=== PATIENT | female | born 1950 | race Caucasian/White ===

== ENCOUNTER 2018-01-26 16:27 | Inpatient (IN) ==
[2018-01-26] MEDS ORDERED: Sod Chloride 0.9% Inj 1,000 ML IV.SIG ONE (17:20)
--- NOTE | 2018-01-26 17:52 | XR ---
EXAM DATE: 01/26/2018 5:47 PM EDT AGE/SEX: 67 years / Female INDICATIONS: Palpitations. CLINICAL DATA: This is the patient's initial encounter. Patient reports that signs and symptoms have been present for 1 day and indicates a pain score of 0/10. MEDICAL/SURGICAL HISTORY: None. None. COMPARISON: [facility], CT CHEST W/ CONTRAST, 01/25/2018. . FINDINGS: The right lung is grossly clear. There is a 2.3 cm mass in the medial left upper lung. This was noted on a recent CT scan of the thorax. The heart size is within normal limits. There are no pleural effu sions or pulmonary edema. The bony structures are intact and stable. CONCLUSION: 1. There continues to be a focal mass in the medial left upper lung measuring approximately 2.3 cm. This was recently evaluated by CT thorax. 2. Otherwise, the rest the lung babin remain grossly clear. Electronically signed by: Reymundo Noe MD 01/26/2018 5:51 PM EDT
[2018-01-26 18:23] LABS: Baso # (Auto) 0.1 th/mm3 (0.0-0.2); Baso % (Auto) 0.8 % (0.0-2.0); Eos % (Auto) 0.3 % (0.0-4.0); Hematocrit 41.6 % (35.0-46.0); Hemoglobin 13.8 gm/dL (11.6-15.3); Lymph # (Auto) 1.9 th/mm3 (1.0-4.8); Lymph % (Auto) 18.4 % (9.0-44.0); Mean Corpuscular HGB Conc 33.2 % (32.0-36.0); Mean Corpuscular Hemoglobin 30.1 pg (27.0-34.0); Mean Corpuscular Volume 90.8 fL (80.0-100.0); Mono # (Auto) 0.8 th/mm3 (0.0-0.9); Mono % (Auto) 7.4 % (0.0-8.0); Neut # (Auto) 7.6 th/mm3 (1.8-7.7); Neut % (Auto) 73.1 % (16.0-70.0); Platelet Count 299 th/mm3 (150-450); Red Blood Count 4.58 mil/mm3 (4.00-5.30); Red Cell Distribution Width 13.6 % (11.6-17.2); White Blood Count 10.4 th/mm3 (4.0-11.0)
[2018-01-26 18:43] LABS: Alanine Aminotransferase 19 U/L (10-53); Albumin 3.5 g/dL (3.4-5.0); Anion Gap 10 meq/L (5-15); Aspartate Aminotransferase 18 U/L (15-37); Blood Urea Nitrogen 23 mg/dL (7-18); Carbon Dioxide 23.7 meq/L (21.0-32.0); Chloride 109 meq/L (98-107); Glomerular Filtration Rate Greater Than 89 mL/min (>89); Glucose,Random 97 mg/dL (74-106); Potassium 3.5 meq/L (3.5-5.1); Sodium 143 meq/L (136-145)
[2018-01-26 18:46] LABS: Alkaline Phosphatase 87 U/L (45-117); Total Protein 7.4 g/dL (6.4-8.2)
[2018-01-26] MEDS ORDERED: Dexamethasone Inj 20 MG/5 ML Vial IV.PUSH ONE (18:53)
--- NOTE | 2018-01-26 18:59 | CT ---
EXAM DATE: 01/26/2018 6:39 PM EDT AGE/SEX: 67 years / Female INDICATIONS: General weakness CLINICAL DATA: This is the patient's initial encounter. Patient reports that signs and symptoms have been present for 1 day and indicates a pain score of 5/10. MEDICAL/SURGICAL HISTORY: Hypothyroidism. Gastric ulcer lung mass Appendectomy. Hysterectomy. Ch olecystectomy. Bypass gastrojejunostomy RADIATION DOSE: 56.35 CTDI (mGy) COMPARISON: [facility], CT CHEST W/ CONTRAST, 01/25/2018. . TECHNIQUE: CT of the head without contrast. Using automated exposure control and adjustment of the mA and/or kV according to patient size, radiation dose was kept as low as reasonably achievable to ob tain optimal diagnostic quality images. DICOM format image data is available electronically for revi ew and comparison. FINDINGS: Cerebrum: Abnormal. There are numerous bilateral varying-sized spontaneous hyperdensity masses measu ring up to 1 cm in size. Involvement of the upper, mid, and low convexities. There is also asymmetric hypodensity in the white matter of the right supratentorial brain suggesting diffuse edema. The vent ricles are symmetric in size and normal size. No evidence of midline shift. No evidence of transtento rial herniation. Posterior Fossa: Abnormal. There are multiple spontaneously high density lesions in the left and rig ht cerebellar hemisphere measuring up to 11 mm in size. There is also a dominant spontaneously hyperd ense mass in the lower robbie which measures 1.4 cm in size. The fourth ventricle remains in the midlin e. Extracranial: The visualized portion of the orbits is intact. Skull: The calvaria is intact. No evidence of skull fracture. CONCLUSION: 1. Abnormal noncontrast CT brain demonstrating numerous hyperdense masses involving supratentorial b rain, cerebellum, and robbie. There is evidence of edema in the right supratentorial white matter, but no significant mass effect or herniation seen. An outpatient CT scan yesterday had demonstrated a cav itary right upper lobe mass and adenopathy in the axilla and supraclavicular region. Primary differen tial consideration is metastatic disease. . Electronically signed by: Edy Alvarado MD 01/26/2018 6:57 PM EDT
--- NOTE | 2018-01-26 19:33 | ED ---
HPI General Chief complaint: Fall Stated complaint: dr sent Time Seen by Provider: 01/26/18 17:20 Source: patient and family Mode of arrival: ambulatory Limitations: no limitations History of Present Illness HPI narrative: 67-year-old female patient presents to the ER sent in by her friends and primary care doctor, apparently has recently been found to have possible metastases in the lung, and has been having problems with frequent falls, difficulty walking. She denies any chest pains currently, abdominal pains, vomiting, or other issues. Related Data Home Medications Medication Instructions Recorded Confirmed acetaminophen [Tylenol] 325 mg PO Q4-6H PRN 01/26/18 01/26/18 ascorbic acid (vitamin C) [Vitamin 500 mg PO BID 01/26/18 01/26/18 C] bethanechol chloride [Urecholine] 12.5 mg PO QID 01/26/18 01/26/18 [id number]-iuvvnljmdhukr-buuw 1 cap PO Q4H PRN 01/26/18 01/26/18 [Fioricet] calcium carbonate [Calcium 500] 1,000 mg PO DAILY 01/26/18 01/26/18 dexlansoprazole [Dexilant] 60 mg PO DAILY 01/26/18 01/26/18 estradiol 1 mg PO DAILY 01/26/18 01/26/18 ferrous sulfate 325 mg PO BID 01/26/18 01/26/18 folic acid 1 mg PO DAILY 01/26/18 01/26/18 levothyroxine [Synthroid] 200 mcg PO DAILY 01/26/18 01/26/18 loratadine-pseudoephedrine 1 tab PO DAILY PRN 01/26/18 01/26/18 [Claritin-D 24 Hour] sucralfate [Carafate] 1 g PO QID 01/26/18 01/26/18 topiramate [Topamax] 50 mg PO DAILY 01/26/18 01/26/18 Allergies Allergy/AdvReac Type Severity Reaction Status Date / Time No Known Allergies Allergy NONE Uncoded 01/26/18 17:44 Review of Systems ROS: all other systems reviewed are negative [facility] Medical History Medical History Bowel obstruction (Acute) Gastric ulcer (Acute) Hypothyroidism (Acute) Iron deficiency anemia (Acute) Migraines (Acute) Right rotator cuff tear (Acute) Surgical History Surgical History History of appendectomy (Acute) History of bypass gastrojejunostomy (Acute) History of partial hysterectomy (Acute) History of shoulder surgery (Acute) Hx of cholecystectomy (Acute) Hx of oophorectomy (Acute) Hx of tonsillectomy (Acute) S/P correction of deviated nasal septum (Acute) Social History Social History Substance History: No History of Abuse Second Hand Smoke Exposure: No Smoking Status: Current every day smoker Tobacco Type: Cigarettes How Often Do You Have a Drink Containing Alcohol: 2 to 4 times a month Recent Travel in [facility] within the Last 8 Weeks: No Recent Out of Country Travel within the Last 8 Weeks: No Immunization History Tetanus Immunization: >5 Years Hx Influenza Vaccine This Season: No Exam Narrative Exam Narrative: GENERAL: Well-developed elderly female patient currently and mild distress. Awake, alert, oriented 3. SKIN: Focused skin assessment warm/dry. HEAD: Atraumatic. Normocephalic. EYES: Pupils equal and round. No scleral icterus. No injection or drainage. ENT: No nasal bleeding or discharge. Mucous membranes pink and moist. NECK: Trachea midline. No JVD. CARDIOVASCULAR: Regular rate and rhythm. No murmur appreciated. RESPIRATORY: No accessory muscle use. Clear to auscultation. Breath sounds equal bilaterally. GASTROINTESTINAL: Abdomen soft, non-tender, nondistended. Hepatic and splenic margins not palpable. MUSCULOSKELETAL: No obvious deformities. No clubbing. No cyanosis. No edema. NEUROLOGICAL: Awake and alert. No obvious cranial nerve deficits. Motor grossly within normal limits. Normal speech.Ataxia. PSYCHIATRIC: Appropriate mood and affect; insight and judgment normal. Course Initial Documented Vital Signs Temperature 97.6 F 01/26/18 16:39 Pulse Rate 105 H 01/26/18 16:39 Respiratory Rate 18 01/26/18 16:39 Blood Pressure 119/71 01/26/18 16:39 Pulse Oximetry 93 L 01/26/18 16:39 Last Documented Vital Signs Temperature 97.6 F 01/26/18 16:39 Pulse Rate 85 01/26/18 19:24 Respiratory Rate 16 01/26/18 19:24 Blood Pressure 142/73 H 01/26/18 19:24 Pulse Oximetry 96 01/26/18 19:24 Medical Decision Making MDM Narrative Medical decision making narrative: Case was discussed with Dr. Taylor, patient' s primary care doctor, and he sends over fax regarding the patient and her pulmonary metastases. Her CAT scan is showing multiple intracranial metastases. Case was discussed with Dr. Adams who does not recommend further neurosurgical treatment at this time. Decadron was given to the patient. Case was then discussed with Dr. Regan for admission. Medical Screen Exam Complete: Yes Emergency Medical Condition: Yes Differential Diagnosis Differential Diagnosis: Electrolyte abnormalities versus dehydration versus acute intracranial injuries Lab Data Lab results reviewed: Yes I reviewed the patient's lab results. Result diagrams: 01/26/18 18:05 01/26/18 18:05 Lab Results 01/26/18 01/26/18 Range/Units 18:05 18:05 WBC 10.4 (4.0-11.0) th/mm3 RBC 4.58 (4.00-5.30) mil/mm3 Hgb 13.8 (11.6-15.3) gm/dL Hct 41.6 (35.0-46.0) % MCV 90.8 (80.0-100.0) fL MCH 30.1 (27.0-34.0) pg MCHC 33.2 (32.0-36.0) % RDW 13.6 (11.6-17.2) % Plt Count 299 (150-450) th/mm3 MPV 9.0 (7.0-11.0) fL Neut % (Auto) 73.1 H (16.0-70.0) % Lymph % (Auto) 18.4 (9.0-44.0) % [place] % (Auto) 7.4 (0.0-8.0) % Eos % (Auto) 0.3 (0.0-4.0) % Baso % (Auto) 0.8 (0.0-2.0) % Neut # (Auto) 7.6 (1.8-7.7) th/mm3 Lymph # (Auto) 1.9 (1.0-4.8) th/mm3 [place] # (Auto) 0.8 (0.0-0.9) th/mm3 Eos # (Auto) 0.0 (0.0-0.4) th/mm3 Baso # (Auto) 0.1 (0.0-0.2) th/mm3 WBC Differential . Differential Comment Auto diff final Sodium 143 (136-145) meq/L Potassium 3.5 (3.5-5.1) meq/L Chloride 109 H (98-107) meq/L Carbon Dioxide 23.7 (21.0-32.0) meq/L Anion Gap 10 (5-15) meq/L BUN 23 H (7-18) mg/dL Creatinine 0.63 (0.50-1.00) mg/dL Estimated GFR Greater than 89 (>89) mL/min Random Glucose 97 (74-106) mg/dL Calcium 9.0 (8.5-10.1) mg/dL Total Bilirubin 0.5 (0.2-1.0) mg/dL AST 18 (15-37) U/L ALT 19 (10-53) U/L Alkaline Phosphatase 87 (45-117) U/L Total Protein 7.4 (6.4-8.2) g/dL Albumin 3.5 (3.4-5.0) g/dL Imaging Data Attestation: I personally reviewed and interpreted this imaging study as follows : Radiologist's impression: Chest X-Ray 01/26/18 17:20 CONCLUSION: 1. There continues to be a focal mass in the medial left upper lung measuring approximately 2.3 cm. This was recently evaluated by CT thorax. 2. Otherwise, the rest the lung babin remain grossly clear. Head CT 01/26/18 17:20 CONCLUSION: 1. Abnormal noncontrast CT brain demonstrating numerous hyperdense masses involving supratentorial brain, cerebellum, and robbie. There is evidence of edema in the right supratentorial white matter, but no significant mass effect or herniation seen. An outpatient CT scan yesterday had demonstrated a cavitary right upper lobe mass and adenopathy in the axilla and supraclavicular region. Primary differential consideration is metastatic disease. . Discharge Plan Discharge Disposition Patient Disposition: 30 Still Patient Discharge Condition Condition: Fair Discharge Details Anticipated Discharge Date: 01/26/18 Diagnosis: Brain metastases Physicians Team ED Provider: Keny Moreland Primary Care Provider: Briseida Altamirano Attending Provider: Emy Regan Discharge Interventions Interventions: Vital Signs Last Done: 01/26/18 19:24 Status ED Status: Admitted Patient
[2018-01-26] MEDS ORDERED: Bisacodyl 10 MG Supp RECTAL PRN (21:21)
[2018-01-26] MEDS ORDERED: Acetaminophen 325 MG Tablet PO PRN (21:21)
--- NOTE | 2018-01-26 21:29 | P.HP ---
History of Present Illness Service: [facility] Primary Care Physician: Briseida Altamirano MD History of Present Illness: 67-year-old female with past medical history significant for hypothyroidism and migraines presents to the emergency department for further evaluation of frequent falls. The patient was sent by her primary care physician for further evaluation of possible metastatic disease to the lung. Patient reports she has been having difficulty with frequent falls and increasing shortness of breath for approximately 2 weeks. She denies any headaches or blurry vision. No fevers/chills. No chest pain or shortness of breath. No abdominal pain. No nausea/vomiting/diarrhea. Inpatient Certification: I certify that the inpatient services were ordered in accordance with Medicare regulations governing the order. This includes certification that hospital inpatient services are reasonable and necessary and in the case of services not specified as inpatient-only under 42 CFR 419.22(n), that they are appropriately provided as inpatient services in accordance to with the 2-midnight benchmark under 43 CFR 412.3(e) Review of Systems All other systems reviewed negative except as stated in HPI PMFSH - History History Provided By: Patient, Friend - Medical History Medical History: Medical History (Last Reviewed 01/26/18 @ 19:29 by Keny Moreland MD) Bowel obstruction Gastric ulcer Hypothyroidism Iron deficiency anemia Migraines Right rotator cuff tear - Surgical History Surgical History: Surgical History (Last Reviewed 01/26/18 @ 19:29 by Keny Moreland MD) History of appendectomy History of bypass gastrojejunostomy History of partial hysterectomy History of shoulder surgery Hx of cholecystectomy Hx of oophorectomy Hx of tonsillectomy S/P correction of deviated nasal septum - Family History Family History: Family History (Last Updated 01/26/18 @ 21:25 by Emy Regan MD) Other Family history normal - Tobacco History Second Hand Smoke Exposure: No Tobacco Use In Past 30 Days: Yes Smoking Status: Current every day smoker Tobacco Type: Cigarettes - Alcohol History How Often Do You Have a Drink Containing Alcohol: 2 to 4 times a month - Substance Use History Substance History: No History of Abuse - Travel History Recent Travel in the [place] Within the Last 8 Weeks: No Recent Travel Out of the Country Within the Last 8 Weeks: No - Immunization History Tetanus Immunization: >5 Years Hx Influenza Vaccine This Season: No Medications and Allergies Active Medications: Active Medications Sodium Chloride (Ns Flush) 2 ml IV.FLUSH PRN PRN PRN Reason: FLUSH AFTER USING IV ACCESS Allergies Allergy/AdvReac Type Severity Reaction Status Date / Time No Known Allergies Allergy NONE Uncoded 01/26/18 17:44 Home Medications Medication Instructions Recorded Confirmed Type acetaminophen [Tylenol] 325 mg PO Q4-6H PRN 01/26/18 01/26/18 History ascorbic acid (vitamin C) [Vitamin 500 mg PO BID 01/26/18 01/26/18 History C] bethanechol chloride [Urecholine] 12.5 mg PO QID 01/26/18 01/26/18 History ljgcmwaamj-nlkcstctyypdh-vtaz 1 cap PO Q4H PRN 01/26/18 01/26/18 History [Fioricet] calcium carbonate [Calcium 500] 1,000 mg PO DAILY 01/26/18 01/26/18 History dexlansoprazole [Dexilant] 60 mg PO DAILY 01/26/18 01/26/18 History estradiol 1 mg PO DAILY 01/26/18 01/26/18 History ferrous sulfate 325 mg PO BID 01/26/18 01/26/18 History folic acid 1 mg PO DAILY 01/26/18 01/26/18 History levothyroxine [Synthroid] 200 mcg PO DAILY 01/26/18 01/26/18 History loratadine-pseudoephedrine 1 tab PO DAILY PRN 01/26/18 01/26/18 History [Claritin-D 24 Hour] sucralfate [Carafate] 1 g PO QID 01/26/18 01/26/18 History topiramate [Topamax] 50 mg PO DAILY 01/26/18 01/26/18 History Exam Vital signs: Vital Signs 01/26/18 16:39 01/26/18 16:44 01/26/18 19:24 Temperature 97.6 F Pulse Rate 105 H 91 H 85 Respiratory Rate 18 18 16 Blood Pressure 119/71 138/67 142/73 H Pulse Oximetry 93 L 95 96 Intake & Output 01/26/18 01/26/18 01/27/18 06:59 18:59 06:59 Weight 54.431 kg Narrative: Gen.: No acute distress Head: Normocephalic. Atraumatic. EENT: Pupils equal round and reactive to light. Nose without drainage. Airway intact. Throat without injection. Cardiovascular: Regular rate and rhythm. No murmurs, rubs or gallops. Respiratory: Lungs clear to auscultation bilaterally. No wheezes or rhonchi. Abdomen: Soft, nontender, nondistended. No peritoneal signs. Musculoskeletal: No gross deformities. No edema. Skin: No obvious rashes or erythema. Neuro: Sensory and motor grossly intact. Cranial nerves II through XII grossly intact. Results - Labs CBC & Chem 7: 01/26/18 18:05 01/26/18 18:05 Labs: Laboratory Results - last 24 hr 01/26/18 01/26/18 18:05 18:05 WBC 10.4 RBC 4.58 Hgb 13.8 Hct 41.6 MCV 90.8 MCH 30.1 MCHC 33.2 RDW 13.6 Plt Count 299 MPV 9.0 Neut % (Auto) 73.1 H Lymph % (Auto) 18.4 [place] % (Auto) 7.4 Eos % (Auto) 0.3 Baso % (Auto) 0.8 Neut # (Auto) 7.6 Lymph # (Auto) 1.9 [place] # (Auto) 0.8 Eos # (Auto) 0.0 Baso # (Auto) 0.1 WBC Differential . Differential Comment Auto diff final Sodium 143 Potassium 3.5 Chloride 109 H Carbon Dioxide 23.7 Anion Gap 10 BUN 23 H Creatinine 0.63 Estimated GFR Greater than 89 Random Glucose 97 Calcium 9.0 Total Bilirubin 0.5 AST 18 ALT 19 Alkaline Phosphatase 87 Total Protein 7.4 Albumin 3.5 - Imaging Impressions Chest X-Ray 01/26/18 17:20 CONCLUSION: 1. There continues to be a focal mass in the medial left upper lung measuring approximately 2.3 cm. This was recently evaluated by CT thorax. 2. Otherwise, the rest the lung babin remain grossly clear. Head CT 01/26/18 17:20 CONCLUSION: 1. Abnormal noncontrast CT brain demonstrating numerous hyperdense masses involving supratentorial brain, cerebellum, and robbie. There is evidence of edema in the right supratentorial white matter, but no significant mass effect or herniation seen. An outpatient CT scan yesterday had demonstrated a cavitary right upper lobe mass and adenopathy in the axilla and supraclavicular region. Primary differential consideration is metastatic disease. . Caprini VTE Risk Assessment Caprini VTE Risk Assessment: Moderate/High Risk (score >= 2) Caprini Risk Assessment Model: Point Value = 1 Point Value = 2 Point Value = 3 Point Value = 5 Age 41-60 Minor surgery BMI > 25 kg/m2 Swollen legs Varicose veins or History of unexplained or recurrent spontaneous Oral contraceptives or hormone replacement Sepsis (< 1 month) Serious lung disease, including pneumonia (< 1 month) Abnormal pulmonary function Acute myocardial infarction Congestive heart failure (< 1 month) History of inflammatory bowel disease Medical patient at bed rest Age 61-74 Arthroscopic surgery Major open surgery (> 45 min) Laparoscopic surgery (> 45 min) Malignancy Confined to bed (> 72 hours) Immobilizing plaster cast Central venous access Age >= 75 History of VTE Family history of VTE Factor V Leiden Prothrombin [id number] Lupus anticoagulant Anticardiolipin antibodies Elevated serum homocysteine Heparin-induced thrombocytopenia Other congenital or acquired thrombophilia Stroke (< 1 month) Elective arthroplasty Hip, pelvis, or leg fracture Acute spinal cord injury (< 1 month) Prophylaxis Regimen: Total Risk Factor Score Risk Level Prophylaxis Regimen 0-1 Low Early ambulation 2 Moderate Order ONE of the following: *Sequential Compression Device (SCD) *Heparin 5000 units SQ BID 3-4 Higher Order ONE of the following medications: *Heparin 5000 units SQ TID *Enoxaparin/Lovenox 40 mg SQ daily (WT < 150 kg, CrCl > 30 mL/min) *Enoxaparin/Lovenox 30 mg SQ daily (WT < 150 kg, CrCl > 10-29 mL/min) *Enoxaparin/Lovenox 30 mg SQ BID (WT < 150 kg, CrCl > 30 mL/min) AND/OR *Sequential Compression Device (SCD) 5 or more Highest Order ONE of the following medications: *Heparin 5000 units SQ TID (Preferred with Epidurals) *Enoxaparin/Lovenox 40 mg SQ daily (WT < 150 kg, CrCl > 30 mL/min) *Enoxaparin/Lovenox 30 mg SQ daily (WT < 150 kg, CrCl > 10-29 mL/min) *Enoxaparin/Lovenox 30 mg SQ BID (WT < 150 kg, CrCl > 30 mL/min) AND *Sequential Compression Device (SCD) Assessment and Plan - Plan Assessment/plan: 1. Frequent falls/lung/brain metastatic disease CT significant for numerous hyperdense masses concerning for metastatic disease , IV Decadron Outpatient CT scan yesterday demonstrated a cavitary right upper lobe mass and adenopathy in the axilla and supraclavicular region also suggestive of metastatic disease Patient with no previous cancer history Oncology consulted, appreciate recommendations 2. Hypothyroidism Continue home Synthroid 3. Migraines Continue Topamax FEN Regular diet Electrolytes: Monitor and replete as needed Heparin
[2018-01-26 22:13] LABS: Bacteria,Urine Rare /hpf; Bilirubin,Urine Negative (Negative); Clarity,Urine Hazy (Clear); Color,Urine Yellow (Yellw/Straw); Glucose,Urine (UA) Negative (Negative); Leukocyte Esterase,Urine Negative (Negative); Mucus,Urine Few /lpf (Occasional); Nitrite,Urine Negative (Negative); Squamous Epithelial Cell,Urine 3 /hpf (0-5)
[2018-01-26] MEDS: Heparin - SQ 10,000 UNITS/ML Vial SQ SCH (22:41)
[2018-01-26] MEDS: Morphine Inj 4 MG/ML Vial IV.PUSH PRN (22:41)
[2018-01-27] MEDS: Morphine Inj 4 MG/ML Vial IV.PUSH PRN ×6 (01:35→21:14)
[2018-01-27] MEDS: Senna/Docusate Sodium 8.6/50 MG Tablet PO SCH ×2 (09:14→21:15)
[2018-01-27] MEDS: Topiramate 25 MG Tablet PO SCH (09:14)
[2018-01-27] MEDS: Heparin - SQ 10,000 UNITS/ML Vial SQ SCH (09:14)
--- NOTE | 2018-01-27 15:34 | P.PN ---
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 The patient is seen sitting upright in bed, reading a book. Friend at bedside. Patient reports just feeling sore all over including her back and legs. She reports significant weakness of her left leg, unable to lift it off the bed. She states she has not been able to ambulate for a few days now. She reports her headache has improved overnight. Denies any unilateral numbness. Denies any leg chest pain. Reports some minimal shortness of breath and expiratory wheezing. She denies any abdominal pain, nausea/vomiting, or diarrhea. She has no other medical complaints at this time. She lives alone. Physical Exam Vital signs: Vital Signs 01/26/18 16:39 01/26/18 16:44 01/26/18 19:24 Temperature 97.6 F Pulse Rate 105 H 91 H 85 Respiratory Rate 18 18 16 Blood Pressure 119/71 138/67 142/73 H Pulse Oximetry 93 L 95 96 01/26/18 22:05 01/27/18 04:00 01/27/18 08:42 Temperature 97.5 F L 97.9 F 98.2 F Pulse Rate 81 82 70 Respiratory Rate 17 17 20 Blood Pressure 147/69 H 126/60 117/60 Pulse Oximetry 93 L 91 L 98 01/27/18 13:04 Temperature 99.2 F Pulse Rate 62 Respiratory Rate 20 Blood Pressure 120/60 Pulse Oximetry 98 Intake & Output 01/26/18 01/27/18 01/27/18 18:59 06:59 18:59 Intake Total 1240 / 1240 Balance 1240 / 1240 Weight 54.431 kg 54.4 kg Intake: IV 1000 / 1000 Oral 240 / 240 Other: # Voids 2 Weight On Admission 54.4 kg Narrative: GENERAL: Well-nourished, well-developed pleasant elderly female patient in [facility]. SKIN: Warm and dry. No rash. HEENT: Normocephalic. Atraumatic. Pupils equal and round. Mucous membranes pink and moist. NECK: Supple. Trachea midline. CARDIOVASCULAR: Regular rate and rhythm. No murmur appreciated. RESPIRATORY: No accessory muscle use. Bilateral mild expiratory wheezing, with some rales on the right. GASTROINTESTINAL: Abdomen soft, non-tender, nondistended. Normoactive bowel sounds x4. MUSCULOSKELETAL: No obvious deformities. Extremities without clubbing, cyanosis , or edema. NEUROLOGICAL: Awake and alert. No obvious cranial nerve deficits. 5/5 bilateral upper extremity strength, 5/5 right lower extremity strength, 2/5 left lower extremity strength. Bilateral lower extremity sensation equal and intact. Normal speech. PSYCHIATRIC: Appropriate mood and affect; insight and judgment normal. Results - Labs CBC & Chem 7: 01/26/18 18:05 01/26/18 18:05 Laboratory Results - last 24 hr 01/26/18 01/26/18 01/26/18 18:05 18:05 21:45 WBC 10.4 RBC 4.58 Hgb 13.8 Hct 41.6 MCV 90.8 MCH 30.1 MCHC 33.2 RDW 13.6 Plt Count 299 MPV 9.0 Neut % (Auto) 73.1 H Lymph % (Auto) 18.4 [place] % (Auto) 7.4 Eos % (Auto) 0.3 Baso % (Auto) 0.8 Neut # (Auto) 7.6 Lymph # (Auto) 1.9 [place] # (Auto) 0.8 Eos # (Auto) 0.0 Baso # (Auto) 0.1 WBC Differential . Differential Comment Auto diff final Sodium 143 Potassium 3.5 Chloride 109 H Carbon Dioxide 23.7 Anion Gap 10 BUN 23 H Creatinine 0.63 Estimated GFR Greater than 89 Random Glucose 97 Calcium 9.0 Total Bilirubin 0.5 AST 18 ALT 19 Alkaline Phosphatase 87 Total Protein 7.4 Albumin 3.5 Urine Color Yellow Urine Clarity Hazy H Urine pH 5.0 Ur Specific [place] 1.020 Urine Protein Negative Urine Glucose (UA) Negative Urine Ketones Negative Urine Occult Blood Negative Urine Nitrate Negative Urine Bilirubin Negative Urine Urobilinogen Less than 2 Ur Leukocyte Esterase Negative Urine RBC 1 Urine WBC 1 Ur Squamous Epith Cells 3 Urine Bacteria Rare H Urine Mucus Few H Micro UA Comment Culture not ind Ur Microscopic Review Not Reportable Urine Culture Comments Culture not ind - Imaging Impressions Chest X-Ray 01/26/18 17:20 CONCLUSION: 1. There continues to be a focal mass in the medial left upper lung measuring approximately 2.3 cm. This was recently evaluated by CT thorax. 2. Otherwise, the rest the lung babin remain grossly clear. Head CT 01/26/18 17:20 CONCLUSION: 1. Abnormal noncontrast CT brain demonstrating numerous hyperdense masses involving supratentorial brain, cerebellum, and robbie. There is evidence of edema in the right supratentorial white matter, but no significant mass effect or herniation seen. An outpatient CT scan yesterday had demonstrated a cavitary right upper lobe mass and adenopathy in the axilla and supraclavicular region. Primary differential consideration is metastatic disease. . Assessment and Plan - Plan 67-year-old female with history of hypothyroidism, migraines, anemia, presents with frequent falls. Reportedly had an outpatient chest CT that showed cavitary right upper lobe lung mass. New diagnosis metastatic disease/brain masses: Acute. Presented with frequent falls, now with inability to ambulate. -Outpatient chest CT 01/25 showed cavitary right upper lobe lung mass with adenopathy in the axilla and supraclavicular region suggestive of metastatic disease -Head CT upon arrival significant for numerous hyperdense masses concerning for metastatic disease -Continue on IV Decadron -Consult oncology, appreciate assistance -Consult PT, fall precautions -Duo nebs as needed Hypothyroidism: Chronic -Continue home Synthroid Migraines: Chronic -Continue patient's Topamax DVT prophylaxis: Heparin Discharge Planning: Await further evaluation from oncology.
--- NOTE | 2018-01-27 20:12 | P.CON ---
History of Present Illness Service: Hematology/oncology Consult date: 01/27/18 Primary Care Provider: Briseida Altamirano MD Family Provider: Briseida Altamirano MD Chief Complaint: Weakness of the left leg, repeated falls, headaches. History of Present Illness: Ms. Snyder is a very pleasant 67-year-old female who is originally from [place]. She has lived in the [facility] for the past 45 years, she worked for the [employer] for 42 years before she retired in 2015. The patient is , she has no children of her own and lives at home by herself. She reports being a smoker, having smoked a pack a day for the past 40 years (she quit smoking in November 2017). Patient reports being in her usual good state of health up until about 6 weeks ago, she reports walking up the steps into her house and feeling as if her left leg gave out due to weakness. She fell and hurt her back, the back pain did not resolve despite weeks of rest and [id number] analgesics. She reported the symptoms to her primary care physician who advised initial x-ray of the spine which revealed no abnormalities. Unfortunately, her symptoms of left leg weakness progressed, she was prescribed corticosteroids which helped relieve the pain but the weakness persisted. On01/16/2018 the patient underwent an MRI of the lumbar spine without contrast and this revealed no evidence of disc protrusion or spinal canal stenosis. Degenerative disc disease was noted at L5-S1 on the left with mild to moderate left-sided foraminal narrowing. No evidence of metastatic disease was identified. She was also noted on clinical exam to have a right supraclavicular lymph node, therefore a CT scan of the thorax was also performed on 01/16/2018; this revealed findings consistent with a cavitary lesion involving the left upper lobe of the lung measuring 2.3 cm, this was associated with mediastinal lymphadenopathy. Over the past 1 week she developed worsening headaches and worsening left lower extremity edema so she came into the emergency department on 01/26/2018 for further evaluation. A CT scan of the head without contrast was performed on 01/26/2018 which revealed numerous hyperdense masses involving the supratentorial brain, cerebellum, robbie , there was evidence of edema in the right supratentorial white matter but no significant mass-effect or herniation. The patient was admitted to the hospital and was initiated on corticosteroid therapy. Oncology is been asked to see her for further workup and evaluation of what appears to be a metastatic lung malignancy. Review of Systems Constitutional: Reports anorexia, Reports fatigue, Reports lack of energy, Reports malaise, Denies chills, Denies fever(s) Eyes: Denies blind spots, Denies change in vision, Denies double vision Ears, Nose, Mouth, and Throat: Denies abnormal hearing, Denies change in voice, Denies sore throat, Denies throat swelling Cardiovascular: Denies chest pain, Denies fainting, Denies shortness of breath, Denies shortness of breath when lying down, Denies shortness of breath causing sudden awakening Respiratory: Reports cough, Denies change in phlegm color, Denies chest congestion, Denies coughing up blood, Denies excessive phlegm production, Denies pain on inspiration, Denies shortness of breath Gastrointestinal: Denies abdominal pain, Denies bloating, Denies change in bowel habits, Denies heartburn, Denies vomiting Musculoskeletal: Reports abnormal walking, Reports back pain, Denies decreased muscle mass, Denies joint pain Skin/Breast: Denies breast lump, Denies rash Neurologic: Reports abnormal walking, Reports dizziness, Reports frequent falls , Reports headache(s), Reports lack of coordination, Reports localized weakness , Reports weakness, Denies abnormal hearing, Denies abnormal speech, Denies behavioral changes, Denies confusion, Denies fainting, Denies memory loss, Denies numbness, Denies other visual disturbances, Denies sensory deficit, Denies tingling, Denies tingling/numbness/burning sensations, Denies tremor(s) Psychiatric: Reports anxiety, Denies change in appetite Endocrine: Denies cold intolerance Hematologic/Lymphatic: Denies easy bleeding Allergic/Immunologic: Denies GI upset with certain foods PMFSH - History History Provided By: Patient, Friend - Medical History Medical History: Medical History (Last Updated 01/27/18 @ 20:06 by Ghanshyam Mantilla MD) Bowel obstruction Gastric ulcer Hypothyroidism Iron deficiency anemia Migraines Right rotator cuff tear Smoking greater than 40 pack years - Surgical History Surgical History: Surgical History (Last Reviewed 01/26/18 @ 19:29 by Keny Moreland MD) History of appendectomy History of bypass gastrojejunostomy History of partial hysterectomy History of shoulder surgery Hx of cholecystectomy Hx of oophorectomy Hx of tonsillectomy S/P correction of deviated nasal septum - Family History Family History: Family History (Last Updated 01/26/18 @ 21:25 by Emy Regan MD) Other Family history normal - Tobacco History Second Hand Smoke Exposure: No Tobacco Use In Past 30 Days: No Smoking Status: Former smoker Tobacco Type: Cigarettes - Alcohol History How Often Do You Have a Drink Containing Alcohol: 2 to 4 times a month - Substance Use History Substance History: No History of Abuse - Travel History Recent Travel in the [place] Within the Last 8 Weeks: No Recent Travel Out of the Country Within the Last 8 Weeks: No - Immunization History Tetanus Immunization: >5 Years Hx Influenza Vaccine This Season: No Medications and Allergies Active Medications: Active Medications Acetaminophen (Tylenol) 650 mg PO Q4H PRN PRN Reason: Temp > 100.4 Al Hydroxide/Mg Hydroxide (Milk Of Magnesia Liq) 30 ml PO Q12H PRN PRN Reason: Mild Constipation Albuterol (Duoneb Neb (Prn)) 1 ampul NEB Q4HR NEB PRN PRN Reason: SOB/wheezing Bisacodyl (Dulcolax Supp) 10 mg RECTAL DAILY PRN PRN Reason: SEVERE CONSITIPATION Dexamethasone Sodium Phosphate (Decadron Inj) 4 mg IV.PUSH Q6H [facility] Last Admin: 01/27/18 18:01 Dose: 4 mg Lactulose (Lactulose Liq) 30 ml PO DAILY PRN PRN Reason: SEVERE CONSITIPATION Levothyroxine Sodium (Synthroid) 200 mcg PO DAILY@0600 [facility] Last Admin: 01/27/18 05:21 Dose: 200 mcg Morphine Sulfate (Morphine Inj) 2 mg IV.PUSH Q3H PRN PRN Reason: pain 6-10 Last Admin: 01/27/18 16:42 Dose: 2 mg Ondansetron HCl (Zofran Inj) 4 mg IV.PUSH Q6H PRN PRN Reason: NAUSEA OR VOMITING Last Admin: 01/26/18 22:40 Dose: 4 mg Senna/Docusate Sodium (Anita-Colace) 1 tab PO BID [facility] Last Admin: 01/27/18 09:14 Dose: 1 tab Sennosides (Senokot) 17.2 mg PO Q12H PRN PRN Reason: Moderate Constipation Sodium Chloride (Ns Flush) 2 ml IV.FLUSH PRN PRN PRN Reason: FLUSH AFTER USING IV ACCESS Topiramate (Topamax) 50 mg PO DAILY RE[facility]UNDO Last Admin: 01/27/18 09:14 Dose: 50 mg Allergies Allergy/AdvReac Type Severity Reaction Status Date / Time No Known Allergies Allergy NONE Uncoded 01/26/18 17:44 Home Medications Medication Instructions Recorded Confirmed Type acetaminophen [Tylenol] 325 mg PO Q4-6H PRN 01/26/18 01/26/18 History ascorbic acid (vitamin C) [Vitamin 500 mg PO BID 01/26/18 01/26/18 History C] bethanechol chloride [Urecholine] 12.5 mg PO QID 01/26/18 01/26/18 History gxhbdkghqb-aqmaffxkagkph-dzqg 1 cap PO Q4H PRN 01/26/18 01/26/18 History [Fioricet] calcium carbonate [Calcium 500] 1,000 mg PO DAILY 01/26/18 01/26/18 History dexlansoprazole [Dexilant] 60 mg PO DAILY 01/26/18 01/26/18 History estradiol 1 mg PO DAILY 01/26/18 01/26/18 History ferrous sulfate 325 mg PO BID 01/26/18 01/26/18 History folic acid 1 mg PO DAILY 01/26/18 01/26/18 History levothyroxine [Synthroid] 200 mcg PO DAILY 01/26/18 01/26/18 History loratadine-pseudoephedrine 1 tab PO DAILY PRN 01/26/18 01/26/18 History [Claritin-D 24 Hour] sucralfate [Carafate] 1 g PO QID 01/26/18 01/26/18 History topiramate [Topamax] 50 mg PO DAILY 01/26/18 01/26/18 History Physical Exam Vital signs: Vital Signs 01/26/18 22:05 01/27/18 04:00 01/27/18 08:42 Temperature 97.5 F L 97.9 F 98.2 F Pulse Rate 81 82 70 Respiratory Rate 17 17 20 Blood Pressure 147/69 H 126/60 117/60 Pulse Oximetry 93 L 91 L 98 01/27/18 13:04 01/27/18 16:24 Temperature 99.2 F Pulse Rate 62 62 Respiratory Rate 20 20 Blood Pressure 120/60 Pulse Oximetry 98 Intake & Output 01/27/18 01/27/18 01/28/18 06:59 18:59 06:59 Intake Total 1240 / 1240 Balance 1240 / 1240 Weight 54.4 kg Intake: IV 1000 / 1000 Oral 240 / 240 Other: # Voids 2 Weight On Admission 54.4 kg - Constitutional no acute distress - Routine HEENT Exam Head: Present: normocephalic. Absent: atraumatic, cushingoid faces Eye: Present: EOMI, PERRL. Absent: normal accommodation ENT: Absent: mucous membranes moist - Routine Neck Exam Present: supple, full ROM. Absent: JVD, carotid bruit, lymphadenopathy - Routine Respiratory Exam Present: CTA bilaterally. Absent: accessory muscle use, prolonged expiratory phase, rales, respiratory distress, rhonchi, stridor, wheezes, crackles - Routine Cardiovascular Exam Present: RRR, S1, S2. Absent: gallop, rubs, S3, S4 - Routine Abdominal Exam Present: soft. Absent: normoactive bowel sounds, tenderness, distended, guarding, firm, rigid, organomegaly, mass - Routine Extremities Exam Absent: cyanosis, clubbing, edema, full ROM, pulses intact, normal capillary refill - Routine Skin Exam Present: intact - Routine Neurological Exam Present: alert, oriented X3, CN II-XII intact Weakness of the left lower extremity, her left ankle is flexed, she has difficulty raising her left ankle and foot. - Detailed Neurological Exam: Coma Scale Eye Opening: Spontaneous - Routine Psychiatric Exam Present: normal affect, normal thought process. Absent: suicidal ideation, homicidal ideation Assessment and Plan - Plan Ms. Snyder is a very pleasant 67-year-old lady who presents the hospital with left lower extremity weakness, back pain and headaches. She has a 40+ pack year history of tobaccoism, she had been undergoing an outpatient workup for her back pain and leg weakness which included MRI of the lumbar spine. On clinical exam with her primary care physician in mid January she was found to have a palpable right supraclavicular lymph node and a CT thorax was ordered, CT thorax performed on 01/16/2018 revealed a 2.3 cm cavitary mass in the left upper lobe of the lung associated with mediastinal and hilar lymphadenopathy. As her symptoms worsened she had worsening headaches and presents to the emergency department on 01/26/2018, CT head performed to evaluate symptoms of headaches revealed multiple masses involving the supratentorial brain, cerebellum as well as the brainstem (robbie). Findings were highly concerning for multifocal metastatic disease to the brain. The patient has been admitted to the hospital and is awaiting further workup and management. Recommendations: 1. Multiple brain lesions: Obtain MRI of the brain with and without contrast. 2. Mass noted in the left upper lobe of the lung, this is the likely primary lesion. The patient has a easily palpable left supraclavicular lymph node, this should be easily targeted for biopsy to establish the diagnosis. 3. I will review her dosing for dexamethasone and make sure this is optimal. I will also initiate her on prophylactic Keppra for seizure prophylaxis. 4. I have discontinued anticoagulation (patient was on heparin subcu for DVT prophylaxis) this is been discontinued to decrease the risk of hemorrhagic conversion of her untreated brain metastases. 5. Radiation oncology will be consulted to discuss palliative radiation. Oncology will follow along with you. Please transfer her to a more comfortable room in the oncology unit from the emergency department.
[2018-01-27] MEDS ORDERED: Gadobutrol PF 7.5 MMOL/7.5 ML Vial (for RAD) IV.SIG ONE (20:32)
--- NOTE | 2018-01-27 20:50 | MR ---
EXAM DATE: 01/27/2018 8:42 PM EDT AGE/SEX: 67 years / Female INDICATIONS: Metastatic disease. CLINICAL DATA: This is the patient's initial encounter. Patient reports that signs and symptoms have been present for 1 day and indicates a pain score of 0/10. MEDICAL/SURGICAL HISTORY: None. Gastric bypass. Appendectomy. Hysterectomy. Tonsillectomy. Right rotator cuff. COMPARISON: [facility] [place], CT HEAD W/O CONTRAST, 01/26/2018. . TECHNIQUE: Multiplanar, multisequence examination of the brain was performed without and with 5 ml Ga davist (gadobutrol) contrast as a single exam dose. FINDINGS: Examination is abnormal demonstrating multiple enhancing round lesions of varying size involving the brainstem, cerebellum, and supratentorial brain. There are at least 12 lesions in the cerebellum with the largest measuring 1.2 cm. There are 2 lesions seen in the robbie, the larger measuring 2.0 cm. One pontine lesion is right parasagittal and the other is left parasagittal. 12 mm lesion in the left ce rebellar peduncle. In the supratentorial brain, the lesions are too numerous to count (more than 25 o n each side). The largest lesion is located in the right parasagittal high convexity parietal lobe me asuring 2 cm. There is an asymmetric amount of edema, more significant in the right supratentorial br ain and in the left. There is no evidence of midline shift and stop the ventricles are normal size. N o evidence of transtentorial or uncal herniation. No abnormal enhancing lesions in the diploic space. CONCLUSION: 1. Extensive metastatic disease involving supratentorial brain, cerebellum, and robbie. No evidence of midline shift or herniation. Electronically signed by: Edy Alvarado MD 01/27/2018 8:49 PM EDT
[2018-01-27] MEDS: levETIRAcetam 500 MG Tablet PO SCH (21:14)
[2018-01-28] MEDS: Morphine Inj 4 MG/ML Vial IV.PUSH PRN ×5 (06:28→20:48)
[2018-01-28] MEDS: levETIRAcetam 500 MG Tablet PO SCH ×2 (08:45→20:47)
[2018-01-28] MEDS: Topiramate 25 MG Tablet PO SCH (08:45)
[2018-01-28] MEDS: Senna/Docusate Sodium 8.6/50 MG Tablet PO SCH ×2 (08:46→20:48)
--- NOTE | 2018-01-28 09:39 | P.PN ---
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 Patient reports unchanged symptoms today. Still with left lower extremity weakness. Still with difficulty ambulating. She denies any headache today. She has some slightly slurred speech, however she believes it has improved since being started on steroids. The patient was also noted to be choking on her water, she admits to recent occasional difficulty swallowing. Denies any odynophagia. She denies any lightheadedness or dizziness. She has no other medical complaints at this time. Physical Exam Vital signs: Vital Signs 01/27/18 13:04 01/27/18 16:24 01/27/18 20:00 Temperature 99.2 F 98.1 F Pulse Rate 62 62 75 Respiratory Rate 20 20 16 Blood Pressure 120/60 143/71 H Pulse Oximetry 98 92 L 01/28/18 00:00 01/28/18 04:00 01/28/18 08:00 Temperature 98.5 F 98.2 F Pulse Rate 72 55 L 68 Respiratory Rate 16 16 16 Blood Pressure 108/63 106/56 L 138/69 Pulse Oximetry 92 L 93 L 92 L Narrative: GENERAL: Well-nourished, well-developed pleasant elderly female patient in [facility]. SKIN: Warm and dry. No rash. HEENT: Normocephalic. Atraumatic. Pupils equal and round. Mucous membranes pink and moist. NECK: Supple. Trachea midline. Right supraclavicular nontender lymphadenopathy. CARDIOVASCULAR: Regular rate and rhythm. No murmur appreciated. RESPIRATORY: No accessory muscle use. Lungs clear to auscultation today. GASTROINTESTINAL: Abdomen soft, non-tender, nondistended. Normoactive bowel sounds x4. MUSCULOSKELETAL: No obvious deformities. Extremities without clubbing, cyanosis , or edema. NEUROLOGICAL: Awake and alert. No obvious cranial nerve deficits. 5/5 bilateral upper extremity strength, 5/5 right lower extremity strength, 2/5 left lower extremity strength. Bilateral lower extremity sensation equal and intact. Mildly slurred speech. PSYCHIATRIC: Appropriate mood and affect; insight and judgment normal. Results - Labs CBC & Chem 7: 01/26/18 18:05 01/26/18 18:05 - Imaging Impressions Head MRI 01/27/18 00:00 CONCLUSION: 1. Extensive metastatic disease involving supratentorial brain, cerebellum, and robbie. No evidence of midline shift or herniation. Assessment and Plan - Plan 67-year-old female with history of hypothyroidism, migraines, anemia, presents with frequent falls. Reportedly had an outpatient chest CT that showed cavitary right upper lobe lung mass. New diagnosis metastatic disease/brain masses: Acute. Presented with frequent falls, now with inability to ambulate. -Outpatient chest CT 01/25 showed cavitary right upper lobe lung mass with adenopathy in the axilla and supraclavicular region suggestive of metastatic disease -Head CT upon arrival significant for numerous hyperdense masses concerning for metastatic disease -Brain MRI shows extensive metastatic disease involving supratentorial brain , cerebellum, and robbie. No evidence of midline shift or herniation. -Continue on IV Decadron 4mg q6h and Keppra 500mg bid for seizure prophylaxis -Consult oncology, appreciate assistance, likely plan for supraclavicular LN biopsy -Radiation oncology consulted -Consult PT, fall precautions, seizure precautions -Duo nebs as needed -Patient noted to be choking on water, Consult ST for swallow eval Hypothyroidism: Chronic -Continue home Synthroid Migraines: Chronic -Continue patient's Topamax DVT prophylaxis: Heparin Discharge Planning: Planning for biopsy. Await radiation oncology consult.
--- NOTE | 2018-01-28 13:25 | P.PNONC ---
Subjective Interval history: Afebrile Patient seen walking around her room with walker Reports she is feeling somewhat stronger Asking if she will have CAT scan of her abdomen today Objective Vital Signs/Intake & Output: Vital Signs 01/27/18 16:24 01/27/18 20:00 01/28/18 00:00 Temperature 98.1 F 98.5 F Pulse Rate 62 75 72 Respiratory Rate 20 16 16 Blood Pressure 143/71 H 108/63 Pulse Oximetry 92 L 92 L 01/28/18 04:00 01/28/18 08:00 Temperature 98.2 F Pulse Rate 55 L 68 Respiratory Rate 16 16 Blood Pressure 106/56 L 138/69 Pulse Oximetry 93 L 92 L Result Diagrams: 01/26/18 18:05 01/26/18 18:05 Imaging Studies: Impressions Head MRI 01/27/18 00:00 CONCLUSION: 1. Extensive metastatic disease involving supratentorial brain, cerebellum, and robbie. No evidence of midline shift or herniation. Medications: Active Medications Generic Name Dose Route Start Last Admin Trade Name Freq PRN Reason Stop Dose Admin Dexamethasone Sodium Phosphate 4 mg 01/27/18 01:00 01/28/18 13:08 Decadron Inj IV.PUSH 4 mg Q6H REYMUNDO Administration Levetiracetam 500 mg 01/27/18 21:00 01/28/18 08:45 Keppra PO 500 mg BID REYMUNDO Administration Levothyroxine Sodium 200 mcg 01/27/18 06:00 01/28/18 06:15 Synthroid PO 200 mcg DAILY@0600 REYMUNDO Administration Morphine Sulfate 2 mg 01/26/18 22:25 01/28/18 13:08 Morphine Inj IV.PUSH 2 mg Q3H PRN Administration pain 6-10 Ondansetron HCl 4 mg 01/26/18 21:21 01/26/18 22:40 Zofran Inj IV.PUSH 4 mg Q6H PRN Administration NAUSEA OR VOMITING Senna/Docusate Sodium 1 tab 01/27/18 09:00 01/28/18 08:46 Anita-Colace PO 1 tab BID REYMUNDO Administration Topiramate 50 mg 01/27/18 09:00 01/28/18 08:45 Topamax PO 50 mg DAILY REYMUNDO Administration Objective Remarks: GENERAL: Older female who appears younger than stated age using walker in her room. SKIN: Warm and dry. HEAD: Normocephalic. EYES: No scleral icterus. No injection or drainage. NECK: Supple, trachea midline. CARDIOVASCULAR: Regular rate and rhythm without murmurs. RESPIRATORY: Clear to but diminished posteriorly. GASTROINTESTINAL: Abdomen soft, non-tender, nondistended. EXTREMITIES: No cyanosis, or edema. MUSCULOSKELETAL: Adequate muscle tone. NEUROLOGICAL: Awake and alert. Slow movements. Normal speech. Assessment/Plan - Plan 67-year-old female with likely new diagnosis of metastatic lung cancer. Outpatient CT scan of the chest showed left upper lobe cavitary lesion with mediastinal adenopathy. The patient had MRI on admission that showed extensive metastatic disease involving supratentorial brain, cerebellum, and robbie. No evidence of midline shift or herniation. She is currently on therapy with Keppra and Decadron. 1. Obtain CT abdomen pelvis to finish staging 2. Continue Keppra and Decadron. 3. IR consulted for biopsy on Tuesday. 4. Supportive care - Attending Statement The exam, history, and the medical decision-making described in the above note were completed with the assistance of the mid-level provider. I reviewed and agree with the findings presented. I attest that I had a [id number] encounter with the patient on the same day, and personally performed and documented my assessment and findings in the medical record. Patient is to have mild headache. Denies any pulmonary symptom. Await biopsy of lung mass on Tuesday. Continue Decadron and Keppra. Discussed with patient and her family.
[2018-01-28] MEDS ORDERED: Diatrizoate Meglum/Diatrizoate Sod Liq 9 ML UDC PO ONE (14:15)
--- NOTE | 2018-01-28 18:20 | CT ---
EXAM DATE: 01/28/2018 6:10 PM EDT AGE/SEX: 67 years / Female INDICATIONS: General weakness, evaluate for metastatic disease. CLINICAL DATA: This is the patient's initial encounter. Patient reports that signs and symptoms have been present for 1 day and indicates a pain score of 0/10. MEDICAL/SURGICAL HISTORY: Anemia. Appendectomy. Hysterectomy. gastrojejunostomy ORAL CONTRAST: Prescribed oral contrast ingested. RADIATION DOSE: 4.69 CTDI (mGy) COMPARISON: [facility], CT ABDOMEN AND PELVIS W/ CONTRAST, 05/25/2017. . TECHNIQUE: Multiple contiguous axial images were obtained through the abdomen and pelvis following b olus infusion of 97 ml Omnipaque 350 (iohexol) nonionic water-soluble contrast as a single exam dos e. Prescribed oral contrast ingested. Using automated exposure control and adjustment of the mA and/ or kV according to patient size, radiation dose was kept as low as reasonably achievable to obtain op timal diagnostic quality images. DICOM format image data is available electronically for review and comparison. FINDINGS: Lower chest: No acute abnormality is identified. Hepatobiliary: No liver lesion is identified. Gallbladder is absent with clips in the gallbladder fos sa. There is stable intra and extrahepatic bile duct dilatation. The distal common bile duct measures 14 mm. Kidneys: No hydronephrosis or mass. There are 2 nonobstructing stones in the right lower pole kidney measuring up to 8 mm and there is a single 2 mm nonobstructing stone in the left mid kidney. Adrenal Glands: Within normal limits. Spleen: Within normal limits. Pancreas: Within normal limits. Vascular: The aorta is nonaneurysmal. There is severe atherosclerotic disease. Bowel/Mesentery: Stomach demonstrates no acute abnormality. There is been prior surgery in the distal stomach with apparent gastrojejunostomy. The small bowel anastomosis in the left mid abdomen demonst rates no definite abnormality. There are no signs of obstruction. Terminal ileum is normal. No colon abnormality is seen. There is no free air or free fluid. Abdominal Wall: No hernia is visualized. Retroperitoneum: No lymphadenopathy. Bladder: No wall thickening or mass. Reproductive: Uterus is absent. No adnexal abnormality is seen. Inguinal: No lymphadenopathy or hernia. Musculoskeletal: No acute osseous abnormality is identified. There are degenerative changes of the bandar mbar spine with degenerative disc disease at L3-L4 and extending through L5-S1. CONCLUSION: 1. No abnormality is identified to explain the clinical symptoms. No findings are present to indicat e metastatic disease. 2. Stable intra and extrahepatic bile duct dilatation this patient post cholecystectomy. The chronic ity of this finding suggests a benign process. 3. Nonacute findings include severe atherosclerotic disease and bilateral nonobstructing renal stone s measuring up to 8 mm in the right kidney. Electronically signed by: Colin Guthrie MD 01/28/2018 6:19 PM EDT
--- NOTE | 2018-01-28 18:54 | P.CON ---
History of Present Illness Service: radiation oncology Primary Care Provider: Briseida Altamirano MD Family Provider: Briseida Altamirano MD Chief Complaint: Weakness of the left leg, repeated falls, headaches. History of Present Illness: More emotional. With lung mass on CT. Multiple brain metastases. Lung biopsy pending tuesday. [facility] - History History Provided By: Patient, Friend - Medical History Medical History: Medical History (Last Reviewed 01/28/18 @ 11:24 by Ana Dalal) Bowel obstruction Gastric ulcer Hypothyroidism Iron deficiency anemia Migraines Right rotator cuff tear Smoking greater than 40 pack years - Surgical History Surgical History: Surgical History (Last Reviewed 01/28/18 @ 09:12 by Nichelle Benton) History of appendectomy History of bypass gastrojejunostomy History of partial hysterectomy History of shoulder surgery Hx of cholecystectomy Hx of oophorectomy Hx of tonsillectomy S/P correction of deviated nasal septum - Family History Family History: Family History (Last Updated 01/26/18 @ 21:25 by Emy Regan MD) Other Family history normal - Tobacco History Second Hand Smoke Exposure: No Tobacco Use In Past 30 Days: No Smoking Status: Former smoker Tobacco Type: Cigarettes - Alcohol History How Often Do You Have a Drink Containing Alcohol: 2 to 4 times a month - Substance Use History Substance History: No History of Abuse - Travel History Recent Travel in the [place] Within the Last 8 Weeks: No Recent Travel Out of the Country Within the Last 8 Weeks: No - Immunization History Tetanus Immunization: Unsure Hx Influenza Vaccine This Season: Unable to Assess Medications and Allergies Active Medications: Active Medications Acetaminophen (Tylenol) 650 mg PO Q4H PRN PRN Reason: Temp > 100.4 Al Hydroxide/Mg Hydroxide (Milk Of Magnesia Liq) 30 ml PO Q12H PRN PRN Reason: Mild Constipation Albuterol (Duoneb Neb (Prn)) 1 ampul NEB Q4HR NEB PRN PRN Reason: SOB/wheezing Bisacodyl (Dulcolax Supp) 10 mg RECTAL DAILY PRN PRN Reason: SEVERE CONSITIPATION Dexamethasone Sodium Phosphate (Decadron Inj) 4 mg IV.PUSH Q6H REYMUNDO Last Admin: 01/28/18 18:21 Dose: 4 mg Lactulose (Lactulose Liq) 30 ml PO DAILY PRN PRN Reason: SEVERE CONSITIPATION Levetiracetam (Keppra) 500 mg PO BID [facility] Last Admin: 01/28/18 08:45 Dose: 500 mg Levothyroxine Sodium (Synthroid) 200 mcg PO DAILY@0600 [facility] Last Admin: 01/28/18 06:15 Dose: 200 mcg Morphine Sulfate (Morphine Inj) 2 mg IV.PUSH Q3H PRN PRN Reason: pain 6-10 Last Admin: 01/28/18 17:29 Dose: 2 mg Ondansetron HCl (Zofran Inj) 4 mg IV.PUSH Q6H PRN PRN Reason: NAUSEA OR VOMITING Last Admin: 01/26/18 22:40 Dose: 4 mg Senna/Docusate Sodium (Anita-Colace) 1 tab PO BID [facility] Last Admin: 01/28/18 08:46 Dose: 1 tab Sennosides (Senokot) 17.2 mg PO Q12H PRN PRN Reason: Moderate Constipation Sodium Chloride (Ns Flush) 2 ml IV.FLUSH PRN PRN PRN Reason: FLUSH AFTER USING IV ACCESS Topiramate (Topamax) 50 mg PO DAILY [facility] Last Admin: 01/28/18 08:45 Dose: 50 mg Allergies Allergy/AdvReac Type Severity Reaction Status Date / Time No Known Allergies Allergy NONE Uncoded 01/26/18 17:44 Home Medications Medication Instructions Recorded Confirmed Type acetaminophen [Tylenol] 325 mg PO Q4-6H PRN 01/26/18 01/26/18 History ascorbic acid (vitamin C) [Vitamin 500 mg PO BID 01/26/18 01/26/18 History C] bethanechol chloride [Urecholine] 12.5 mg PO QID 01/26/18 01/26/18 History gbuivvcurl-ssluxalavucqc-fjnj 1 cap PO Q4H PRN 01/26/18 01/26/18 History [Fioricet] calcium carbonate [Calcium 500] 1,000 mg PO DAILY 01/26/18 01/26/18 History dexlansoprazole [Dexilant] 60 mg PO DAILY 01/26/18 01/26/18 History estradiol 1 mg PO DAILY 01/26/18 01/26/18 History ferrous sulfate 325 mg PO BID 01/26/18 01/26/18 History folic acid 1 mg PO DAILY 01/26/18 01/26/18 History levothyroxine [Synthroid] 200 mcg PO DAILY 01/26/18 01/26/18 History loratadine-pseudoephedrine 1 tab PO DAILY PRN 01/26/18 01/26/18 History [Claritin-D 24 Hour] sucralfate [Carafate] 1 g PO QID 01/26/18 01/26/18 History topiramate [Topamax] 50 mg PO DAILY 01/26/18 01/26/18 History Physical Exam Vital signs: Vital Signs 01/27/18 20:00 01/28/18 00:00 01/28/18 04:00 Temperature 98.1 F 98.5 F 98.2 F Pulse Rate 75 72 55 L Respiratory Rate 16 16 16 Blood Pressure 143/71 H 108/63 106/56 L Pulse Oximetry 92 L 92 L 93 L 01/28/18 08:00 01/28/18 13:10 01/28/18 16:00 Temperature 97.3 F L Pulse Rate 68 86 Respiratory Rate 16 18 17 Blood Pressure 138/69 121/69 Pulse Oximetry 92 L 96 01/28/18 17:31 Temperature Pulse Rate Respiratory Rate 18 Blood Pressure Pulse Oximetry Intake & Output 01/27/18 01/28/18 01/28/18 18:59 06:59 18:59 Other: Date of Last Bowel Movement 01/26/18 Assessment and Plan - Assessment (1) Brain metastases Code(s): C79.31 - Secondary malignant neoplasm of brain Status: Acute - Plan Discussed whole brain radiation and potential acute correction toxicities. WIll think about. Lung biospy pending tuesday.
[2018-01-29] MEDS: Morphine Inj 4 MG/ML Vial IV.PUSH PRN ×6 (00:06→20:16)
--- NOTE | 2018-01-29 09:03 | P.PN ---
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 Patient is seen and examined resting on the side of the bed with friend at bedside. Patient reports that her pain is well controlled with current pain regimen. She denies any nausea, vomiting, fevers, chills, shortness of breath, dysuria or hematuria. She denies any headache or dizziness. Patient complains of positive cough however thick secretions unable to cough these out. Will have lung biopsy done tomorrow. Physical Exam Vital signs: Vital Signs 01/28/18 13:10 01/28/18 16:00 01/28/18 17:31 Temperature 97.3 F L Pulse Rate 86 Respiratory Rate 18 17 18 Blood Pressure 121/69 Pulse Oximetry 96 01/28/18 19:41 01/28/18 23:00 01/29/18 03:14 Temperature 97.6 F 97.5 F L 97.1 F L Pulse Rate 70 66 53 L Respiratory Rate 18 18 17 Blood Pressure 155/74 H 151/65 H 104/58 L Pulse Oximetry 97 94 L 95 01/29/18 07:03 01/29/18 08:00 01/29/18 08:02 Temperature 97.2 F L Pulse Rate 67 53 L Respiratory Rate 18 18 18 Blood Pressure 132/66 Pulse Oximetry 96 Intake & Output 01/28/18 01/29/18 01/29/18 18:59 06:59 18:59 Intake Total 960 / 960 Balance 960 / 960 Intake: Oral 960 / 960 Other: # Voids 2 Date of Last Bowel Movement 01/26/18 01/26/18 01/26/18 # Bowel Movements 0 Narrative: GENERAL: Well-nourished, well-developed pleasant elderly female patient in [facility]. SKIN: Warm and dry. No rash. HEENT: Normocephalic. Atraumatic. Pupils equal and round. Mucous membranes pink and moist. NECK: Supple. Trachea midline. CARDIOVASCULAR: Regular rate and rhythm. No murmur appreciated. RESPIRATORY: No accessory muscle use. Lungs clear. GASTROINTESTINAL: Abdomen soft, non-tender, nondistended. Normoactive bowel sounds x4. MUSCULOSKELETAL: No obvious deformities. Extremities without clubbing, cyanosis , or edema. NEUROLOGICAL: Awake and alert. No obvious cranial nerve deficits. Bilateral lower extremity sensation equal and intact. Clear speech. PSYCHIATRIC: Appropriate mood and affect; insight and judgment normal. Results - Labs CBC & Chem 7: 01/26/18 18:05 01/26/18 18:05 - Imaging Impressions Abdomen/Pelvis CT 01/28/18 00:00 CONCLUSION: 1. No abnormality is identified to explain the clinical symptoms. No findings are present to indicate metastatic disease. 2. Stable intra and extrahepatic bile duct dilatation this patient post cholecystectomy. The chronicity of this finding suggests a benign process. 3. Nonacute findings include severe atherosclerotic disease and bilateral nonobstructing renal stones measuring up to 8 mm in the right kidney. Assessment and Plan - Plan 67-year-old female with history of hypothyroidism, migraines, anemia, presents with frequent falls. Reportedly had an outpatient chest CT that showed cavitary right upper lobe lung mass. New diagnosis metastatic disease/brain masses: Acute. Presented with frequent falls, now with inability to ambulate. -Outpatient chest CT 01/25 showed cavitary right upper lobe lung mass with adenopathy in the axilla and supraclavicular region suggestive of metastatic disease -Head CT upon arrival significant for numerous hyperdense masses concerning for metastatic disease -Brain MRI shows extensive metastatic disease involving supratentorial brain , cerebellum, and robbie. No evidence of midline shift or herniation. -CT of the abdomen pelvis with no findings to indicate metastatic disease. -Continue on IV Decadron 4mg q6h and Keppra 500mg bid for seizure prophylaxis -Consult oncology, appreciate assistance, lung biopsy tomorrow -Radiation oncology consulted. -Consult PT, fall precautions, seizure precautions -Duo nebs as needed - ST evaluated and recommended regular consistency diet with thin liquids. Wet cough - Likely secondary to above, Mucinex, IS, nebs Hypothyroidism: Chronic -Continue home Synthroid Migraines: Chronic -Continue patient's Topamax DVT prophylaxis: SCD's (heparin DC due to risk for hemorrhagic conversion of her untreated brain metastases). Discussed Condition With: Discussed with patient, RN, friend at bedside. Discharge Planning: Lung biopsy to be completed on Tuesday
[2018-01-29] MEDS: Topiramate 25 MG Tablet PO SCH (09:07)
[2018-01-29] MEDS: levETIRAcetam 500 MG Tablet PO SCH ×2 (09:07→20:16)
[2018-01-29] MEDS: Senna/Docusate Sodium 8.6/50 MG Tablet PO SCH ×2 (09:07→20:16)
[2018-01-29] MEDS: guaiFENesin 600 MG ER Tablet PO SCH ×2 (12:02→20:16)
[2018-01-30] MEDS: Morphine Inj 4 MG/ML Vial IV.PUSH PRN ×5 (01:56→20:09)
[2018-01-30] MEDS: guaiFENesin 600 MG ER Tablet PO SCH ×2 (07:59→20:09)
[2018-01-30] MEDS: levETIRAcetam 500 MG Tablet PO SCH ×2 (07:59→20:09)
[2018-01-30] MEDS: Topiramate 25 MG Tablet PO SCH (07:59)
[2018-01-30] MEDS: Senna/Docusate Sodium 8.6/50 MG Tablet PO SCH ×2 (07:59→20:15)
--- NOTE | 2018-01-30 12:26 | P.DCO ---
- Physical Therapy Order: Evaluate and treat, Improve ambulation - Home Health Nursing Order: Signs/symptoms of disease process - Certification I have seen patient Lupe Snyder on 01/30/18. My clinical findings support the need for the requested home health care services because: Limited mobility due to disease progression, High risk of falls I certify that my clinical findings support that this patient is homebound because: Unsteady gait/balance
--- NOTE | 2018-01-30 12:27 | P.DS ---
Date of admission: 01/26/18 21:51 Primary care physician: Briseida Altamirano MD Brief History from admission: 67-year-old female with past medical history significant for hypothyroidism and migraines presents to the emergency department for further evaluation of frequent falls. The patient was sent by her primary care physician for further evaluation of possible metastatic disease to the lung. Patient reports she has been having difficulty with frequent falls and increasing shortness of breath for approximately 2 weeks. She denies any headaches or blurry vision. No fevers/chills. No chest pain or shortness of breath. No abdominal pain. No nausea/vomiting/diarrhea. DS: Medications - Discharge Medications Prescriptions: guaifenesin [Mucinex] 600 mg PO BID #60 tab hyoscyamine sulfate [Levsin/SL] 0.25 mg PO TID-QID PRN #90 tab PRN Reason: Wet cough levetiracetam [Keppra] 500 mg PO BID #60 tab DS: Summary - Time Spent with Patient Total time spent providing and/or coordinating discharge services: - Quality: VTE Deep Vein Thrombosis/Pulmonary Embolism Present on Admission: Yes Exam Vital signs: Vital Signs 01/29/18 16:00 01/29/18 16:24 01/29/18 19:19 Temperature 97.4 F L 97.4 F L Pulse Rate 66 66 Respiratory Rate 18 18 17 Blood Pressure 135/78 135/63 Pulse Oximetry 95 93 L 01/29/18 22:15 01/30/18 00:21 01/30/18 03:53 Temperature 97.4 F L 97.4 F L Pulse Rate 66 64 Respiratory Rate 18 18 18 Blood Pressure 119/67 117/59 L Pulse Oximetry 96 92 L 01/30/18 08:00 Temperature 97.5 F L Pulse Rate 60 Respiratory Rate 19 Blood Pressure 121/60 Pulse Oximetry 92 L Intake & Output 01/29/18 01/30/18 01/30/18 18:59 06:59 18:59 Intake Total 960 / 960 0 / 0 Balance 960 / 960 0 / 0 Weight 54.4 kg Intake: Oral 960 / 960 0 / 0 Other: # Voids 2 2 Date of Last Bowel Movement 01/26/18 01/26/18 01/26/18 # Bowel Movements 0 Results Procedures completed during hospitalization: None - Impressions ITS Impressions Chest X-Ray 01/26/18 17:20 CONCLUSION: 1. There continues to be a focal mass in the medial left upper lung measuring approximately 2.3 cm. This was recently evaluated by CT thorax. 2. Otherwise, the rest the lung babin remain grossly clear. Head CT 01/26/18 17:20 CONCLUSION: 1. Abnormal noncontrast CT brain demonstrating numerous hyperdense masses involving supratentorial brain, cerebellum, and robbie. There is evidence of edema in the right supratentorial white matter, but no significant mass effect or herniation seen. An outpatient CT scan yesterday had demonstrated a cavitary right upper lobe mass and adenopathy in the axilla and supraclavicular region. Primary differential consideration is metastatic disease. . Head MRI 01/27/18 00:00 CONCLUSION: 1. Extensive metastatic disease involving supratentorial brain, cerebellum, and robbie. No evidence of midline shift or herniation. Abdomen/Pelvis CT 01/28/18 00:00 CONCLUSION: 1. No abnormality is identified to explain the clinical symptoms. No findings are present to indicate metastatic disease. 2. Stable intra and extrahepatic bile duct dilatation this patient post cholecystectomy. The chronicity of this finding suggests a benign process. 3. Nonacute findings include severe atherosclerotic disease and bilateral nonobstructing renal stones measuring up to 8 mm in the right kidney. Discharge Plan - Discharge Disposition Patient Disposition: 50 Hospice/Home - Discharge Condition Condition: Fair - Discharge Order Discharge Orders: Discharge Order (Routine); Ordered 01/30/18 Ordered By: Raj Aleman - Discharge Details Anticipated Discharge Date: 01/26/18 - Physicians Team Primary Care Provider: Briseida Altamirano Attending Provider: Dell Dove Other Providers: Ghanshyam Mantilla MD ; Zia Bautista MD
--- NOTE | 2018-01-30 14:24 | CT ---
EXAM DATE: 01/30/2018 12:47 PM EDT AGE/SEX: 67 years / Female INDICATIONS: Supraclavicular lymph node. COMPARISON: [facility], CT CHEST W/ CONTRAST, 01/25/2018. . FINDINGS: The recent CT of the chest dated 01/25/2018 was reviewed for possible venous biopsy of right supraclav icular lymphadenopathy. The right supraclavicular lymphadenopathy is not accessible percutaneously an d therefore no biopsy could be performed at this time. CONCLUSION: 1. The right supraclavicular lymphadenopathy is not accessible percutaneously. Electronically signed by: Matt Acosta MD 01/30/2018 2:23 PM EDT
--- NOTE | 2018-01-30 15:47 | P.PN ---
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 Patient was seen and evaluated this morning resting in bed comfortably in no acute distress. She denies any fevers, chills, nausea , vomiting, diarrhea, or shortness of breath. Continues to have wet cough. Patient reports that she would like to go home and peacefully. She has plenty of friends who can visit and help out at home. Physical Exam Vital signs: Vital Signs 01/29/18 16:00 01/29/18 16:24 01/29/18 19:19 Temperature 97.4 F L 97.4 F L Pulse Rate 66 66 Respiratory Rate 18 18 17 Blood Pressure 135/78 135/63 Pulse Oximetry 95 93 L 01/29/18 22:15 01/30/18 00:21 01/30/18 03:53 Temperature 97.4 F L 97.4 F L Pulse Rate 66 64 Respiratory Rate 18 18 18 Blood Pressure 119/67 117/59 L Pulse Oximetry 96 92 L 01/30/18 08:00 01/30/18 12:00 Temperature 97.5 F L 97.1 F L Pulse Rate 60 61 Respiratory Rate 19 19 Blood Pressure 121/60 129/72 Pulse Oximetry 92 L 93 L Intake & Output 01/29/18 01/30/18 01/30/18 18:59 06:59 18:59 Intake Total 960 / 960 0 / 0 Balance 960 / 960 0 / 0 Weight 54.4 kg Intake: Oral 960 / 960 0 / 0 Other: # Voids 2 2 Date of Last Bowel Movement 01/26/18 01/26/18 01/26/18 # Bowel Movements 0 Narrative: GENERAL: Well-nourished, well-developed pleasant elderly female patient in [facility]. SKIN: Warm and dry. No rash. HEENT: Normocephalic. Atraumatic. Pupils equal and round. Mucous membranes pink and moist. NECK: Supple. Trachea midline. CARDIOVASCULAR: Regular rate and rhythm. No murmur appreciated. RESPIRATORY: No accessory muscle use. Upper rhonchi, clear throughout rest of the lungs. GASTROINTESTINAL: Abdomen soft, non-tender, nondistended. Normoactive bowel sounds x4. MUSCULOSKELETAL: No obvious deformities. Extremities without clubbing, cyanosis , or edema. NEUROLOGICAL: Awake and alert. No obvious cranial nerve deficits. Bilateral lower extremity sensation equal and intact. Clear speech. PSYCHIATRIC: Appropriate mood and affect; insight and judgment normal. Results - Labs CBC & Chem 7: 01/26/18 18:05 01/26/18 18:05 - Imaging Impressions CT Consultation 01/30/18 00:00 CONCLUSION: 1. The right supraclavicular lymphadenopathy is not accessible percutaneously. - Procedures None Assessment and Plan - Plan 67-year-old female with history of hypothyroidism, migraines, anemia, presents with frequent falls. Reportedly had an outpatient chest CT that showed cavitary right upper lobe lung mass. New diagnosis metastatic disease/brain masses: Acute. Presented with frequent falls, now with inability to ambulate. -Outpatient chest CT 01/25 showed cavitary right upper lobe lung mass with adenopathy in the axilla and supraclavicular region suggestive of metastatic disease -Head CT upon arrival significant for numerous hyperdense masses concerning for metastatic disease -Brain MRI shows extensive metastatic disease involving supratentorial brain , cerebellum, and robbie. No evidence of midline shift or herniation. -CT of the abdomen pelvis with no findings to indicate metastatic disease. -Continue on IV Decadron 4mg q6h and Keppra 500mg bid for seizure prophylaxis -Consult oncology, appreciate assistance, lung biopsy was unable to be performed as this was not approachable per radiologist. -Radiation oncology consulted. -Consult PT, fall precautions, seizure precautions -Duo nebs as needed - ST evaluated and recommended regular consistency diet with thin liquids. Wet cough - Likely secondary to above, Mucinex, IS, nebs, as needed Levsin for secretions. Hypothyroidism: Chronic -Continue home Synthroid Migraines: Chronic -Continue patient's Topamax DVT prophylaxis: SCD's (heparin DC due to risk for hemorrhagic conversion of her untreated brain metastases). Discussed Condition With: Patient, case management. Discharge Planning: Lung biopsy and will to be performed. patient wanted to be discharged home however there were concerns regarding safe discharge. Friends unable to stay with patient around the clock. Hospice will need be available several days out of the week, patient at high risk due to falls. Case management working on detention facility discharge.
--- NOTE | 2018-01-30 18:30 | P.PNONC ---
Subjective Interval history: Patient was seen and examined, vital signs, labs, medications and radiology notes reviewed. Subjectively; she reports she feels marginally improved as compared to when she came in, she continues to have pain in her back and continues to have headaches. She continues to have cough producing scant phlegm. She tells me she sat and thought for a long time about how she would wish to proceed as far as management of her extensively metastatic malignancy which is associated with multiple brain lesions. Though we do not have pathologic confirmation, constellation of findings point towards a primary lung malignancy. She wishes to pursue end of life and comfort oriented care, she does not wish to pursue confirmation of diagnosis. Objective Vital Signs/Intake & Output: Vital Signs 01/29/18 19:19 01/29/18 22:15 01/30/18 00:21 Temperature 97.4 F L 97.4 F L Pulse Rate 66 66 Respiratory Rate 17 18 18 Blood Pressure 135/63 119/67 Pulse Oximetry 93 L 96 01/30/18 03:53 01/30/18 08:00 01/30/18 12:00 Temperature 97.4 F L 97.5 F L 97.1 F L Pulse Rate 64 60 61 Respiratory Rate 18 19 19 Blood Pressure 117/59 L 121/60 129/72 Pulse Oximetry 92 L 92 L 93 L 01/30/18 16:00 Temperature 97.5 F L Pulse Rate 70 Respiratory Rate 19 Blood Pressure 142/69 H Pulse Oximetry 94 L Intake & Output 01/29/18 01/30/18 01/30/18 18:59 06:59 18:59 Intake Total 960 / 960 0 / 0 Balance 960 / 960 0 / 0 Weight 54.4 kg Intake: Oral 960 / 960 0 / 0 Other: # Voids 2 2 Date of Last Bowel Movement 01/26/18 01/26/18 01/26/18 # Bowel Movements 0 Result Diagrams: 01/26/18 18:05 01/26/18 18:05 Imaging Studies: Impressions CT Consultation 01/30/18 00:00 CONCLUSION: 1. The right supraclavicular lymphadenopathy is not accessible percutaneously. Medications: Active Medications Generic Name Dose Route Start Last Admin Trade Name Freq PRN Reason Stop Dose Admin Albuterol 1 ampul 01/27/18 15:34 01/29/18 08:00 Duoneb Neb (Prn) NEB 1 ampul Q4HR NEB PRN Administration SOB/wheezing Dexamethasone Sodium Phosphate 4 mg 01/27/18 01:00 01/30/18 18:09 Decadron Inj IV.PUSH 4 mg Q6H REYMUNDO Administration Guaifenesin 600 mg 01/29/18 11:00 01/30/18 07:59 Mucinex Er PO 600 mg BID REYMUNDO Administration Levetiracetam 500 mg 01/27/18 21:00 01/30/18 07:59 Keppra PO 500 mg BID REYMUNDO Administration Levothyroxine Sodium 200 mcg 01/27/18 06:00 01/30/18 05:14 Synthroid PO 200 mcg DAILY@0600 REYMUNDO Administration Morphine Sulfate 2 mg 01/26/18 22:25 01/30/18 12:59 Morphine Inj IV.PUSH 2 mg Q3H PRN Administration pain 6-10 Ondansetron HCl 4 mg 01/26/18 21:21 01/26/18 22:40 Zofran Inj IV.PUSH 4 mg Q6H PRN Administration NAUSEA OR VOMITING Senna/Docusate Sodium 1 tab 01/27/18 09:00 01/30/18 07:59 Anita-Colace PO 1 tab BID REYMUNDO Administration Sodium Chloride 2 ml 01/26/18 17:20 01/28/18 20:50 Ns Flush IV.FLUSH 2 ml PRN PRN Administration FLUSH AFTER USING IV ACCESS Topiramate 50 mg 01/27/18 09:00 01/30/18 07:59 Topamax PO 50 mg DAILY REYMUNDO Administration Objective Remarks: GENERAL: Middle-aged female, sitting up in bed, no acute distress, she is awake , alert and oriented. SKIN: Warm and dry. HEAD: Normocephalic. EYES: No scleral icterus. No injection or drainage. NECK: Supple, trachea midline. No JVD or lymphadenopathy. LYMPHATIC: No adenopathy. CARDIOVASCULAR: Regular rate and rhythm without murmurs. RESPIRATORY: Breath sounds equal bilaterally. No accessory muscle use. GASTROINTESTINAL: Abdomen soft, non-tender, nondistended. EXTREMITIES: No cyanosis, or edema. MUSCULOSKELETAL: Adequate muscle tone. NEUROLOGICAL: No obvious focal deficit. Awake, alert, and oriented x3. PSYCHIATRIC: Appropriate mood and affect; insight and judgment normal. Assessment/Plan - Plan 67-year-old female with likely new diagnosis of metastatic lung cancer. Outpatient CT scan of the chest showed left upper lobe cavitary lesion with mediastinal adenopathy. The patient had MRI on admission that showed extensive metastatic disease involving supratentorial brain, cerebellum, and robbie. No evidence of midline shift or herniation. She is currently on therapy with Keppra and Decadron. I had a long discussion with Ms. Snyder today, the patient makes it clear to me that she wishes to pursue hospice/end-of-life care. She tells me she understands treatment is available for metastatic malignancy including lung carcinoma with brain metastases. She tells me it is her understanding that treatment would be palliative in nature and designed primarily to help prolong an individual's life. Her understanding is accurate, however I explained to her that typically, a diagnosis is confirmed before I discuss prognosis or treatment options. I explained to the patient that at this point it would require an excisional biopsy of 1 of the supraclavicular lymph nodes to confirm diagnosis. The patient declines any invasive workup, she in fact denies any diagnostic workup. She wishes to pursue comfort oriented care. She understands that by declining disease directed therapy her overall survival will be diminished when compared to pursuing disease directed therapy. Despite this she wishes to pursue end-of-life care and hospice. After talking to the patient I am certain that Ms. Snyder has full capacity and competency to make this decision. Philosophically speaking, her decision is reasonable assuming she does have an underlying lung carcinoma. Hospice consultation has been placed. The oncology service will sign off at this time. Thank you for involving us in the care of this very pleasant lady.
[2018-01-31] MEDS: Morphine Inj 4 MG/ML Vial IV.PUSH PRN ×4 (02:39→14:20)
[2018-01-31] MEDS: Senna/Docusate Sodium 8.6/50 MG Tablet PO SCH (09:42)
[2018-01-31] MEDS: levETIRAcetam 500 MG Tablet PO SCH (09:42)
[2018-01-31] MEDS: Topiramate 25 MG Tablet PO SCH (09:42)
[2018-01-31] MEDS: guaiFENesin 600 MG ER Tablet PO SCH (09:42)
--- NOTE | 2018-01-31 12:32 | P.PN ---
Subjective Interval history: Patient is seen lying comfortably in bed. She denies any chest pain. Does have some shortness of breath and chest congestion; it has not changed from yesterday. No nausea vomiting or diarrhea. Pain is well controlled. She would like to be discharged as soon as possible. Physical Exam Vital signs: Vital Signs 01/30/18 16:00 01/30/18 20:00 01/31/18 00:00 Temperature 97.5 F L 97.6 F 97.5 F L Pulse Rate 70 70 56 L Respiratory Rate 19 17 16 Blood Pressure 142/69 H 158/70 H 122/58 L Pulse Oximetry 94 L 96 01/31/18 08:00 Temperature 95.0 F L Pulse Rate 65 Respiratory Rate 17 Blood Pressure 113/61 Pulse Oximetry 97 Intake & Output 01/30/18 01/31/18 01/31/18 18:59 06:59 18:59 Intake Total 200 / 200 Balance 200 / 200 Weight 52.2 kg Intake: Oral 200 / 200 Other: # Voids 2 Date of Last Bowel Movement 01/26/18 01/26/18 01/26/18 Narrative: GENERAL: Well-nourished, well-developed pleasant female patient in [facility]. SKIN: Warm and dry. No rash. CARDIOVASCULAR: Regular rate and rhythm. No murmur appreciated. RESPIRATORY: No accessory muscle use. Upper rhonchi, clear throughout rest of the lungs. GASTROINTESTINAL: Abdomen soft, non-tender, nondistended. Normoactive bowel sounds x4. MUSCULOSKELETAL: No obvious deformities. Extremities without clubbing, cyanosis , or edema. NEUROLOGICAL: Awake and alert. No obvious cranial nerve deficits. Bilateral lower extremity sensation equal and intact. Clear speech. Results - Labs CBC & Chem 7: 01/26/18 18:05 01/26/18 18:05 - Imaging Impressions CT Consultation 01/30/18 00:00 CONCLUSION: 1. The right supraclavicular lymphadenopathy is not accessible percutaneously. Assessment and Plan - Plan 67-year-old female with history of hypothyroidism, migraines, anemia, presents with frequent falls. Reportedly had an outpatient chest CT that showed cavitary right upper lobe lung mass. New diagnosis metastatic disease/brain masses: Acute. Presented with frequent falls, now with inability to ambulate. -Outpatient chest CT 01/25 showed cavitary right upper lobe lung mass with adenopathy in the axilla and supraclavicular region suggestive of metastatic disease. -Head CT upon arrival significant for numerous hyperdense masses concerning for metastatic disease -Brain MRI shows extensive metastatic disease involving supratentorial brain , cerebellum, and robbie. No evidence of midline shift or herniation. -CT of the abdomen pelvis with no findings to indicate metastatic disease. -Continue on IV Decadron 4mg q6h and Keppra 500mg bid for seizure prophylaxis -Consult oncology, appreciate assistance, lung biopsy was unable to be performed as this was not approachable per radiologist. -Patient does not wish intervention and would like to focus on palliative care. -Consult PT, fall precautions, seizure precautions -Duo nebs as needed - ST evaluated and recommended regular consistency diet with thin liquids. Wet cough - Likely secondary to above, Mucinex, IS, nebs, as needed Levsin for secretions. Hypothyroidism: Chronic -Continue home Synthroid Migraines: Chronic -Continue patient's Topamax DVT prophylaxis: SCD's (heparin DC due to risk for hemorrhagic conversion of her untreated brain metastases). Discussed Condition With: Patient, case management. Discharge Planning: Patient wanted to be discharged home however there were concerns regarding safe discharge. Friends unable to stay with patient around the clock. Hospice will need be available several days out of the week, patient at high risk due to falls. Case management working on assisted facility discharge. [id number] signed 01/31
--- NOTE | 2018-01-31 14:28 | P.DS ---
Date of admission: 01/26/18 21:51 Primary care physician: Briseida Altamirano MD Attending physician on discharge: Dell Dove Anticipated date of discharge: 01/31/18 Brief History from admission: 67-year-old female with past medical history significant for hypothyroidism and migraines presents to the emergency department for further evaluation of frequent falls. The patient was sent by her primary care physician for further evaluation of possible metastatic disease to the lung. Patient reports she has been having difficulty with frequent falls and increasing shortness of breath for approximately 2 weeks. DS: Medications - Discharge Medications Prescriptions: dexamethasone [Decadron] 4 mg PO Q8H #21 tab guaifenesin [Mucinex] 600 mg PO BID #60 tab hyoscyamine sulfate [Levsin/SL] 0.25 mg PO TID-QID PRN #90 tab PRN Reason: Wet cough levetiracetam [Keppra] 500 mg PO BID #60 tab DS: Summary Hospital Course: 67-year-old female with history of hypothyroidism, migraines, anemia, presents with frequent falls. Reportedly had an outpatient chest CT that showed cavitary right upper lobe lung mass and was sent to hospital for additional evaluation. Presented with frequent falls, now with inability to ambulate. Outpatient chest CT 01/25 showed cavitary right upper lobe lung mass with adenopathy in the axilla and supraclavicular region suggestive of metastatic disease. Head CT upon arrival significant for numerous hyperdense masses concerning for metastatic disease. Brain MRI shows extensive metastatic disease involving supratentorial brain, cerebellum, and robbie. No evidence of midline shift or herniation. CT of the abdomen pelvis with no findings to indicate metastatic disease. Decadron and Keppra for seizure prophylaxis. Lung biopsy was unable to be performed as this was not approachable per radiologist. Patient evaluated by and case discussed with extensively with oncology; does not wish intervention and would like to focus on palliative care. - Time Spent with Patient Total time spent providing and/or coordinating discharge services: Less than 30 minutes - Quality: VTE Deep Vein Thrombosis/Pulmonary Embolism Present on Admission: Yes Exam Vital signs: Vital Signs 01/30/18 16:00 01/30/18 20:00 01/31/18 00:00 Temperature 97.5 F L 97.6 F 97.5 F L Pulse Rate 70 70 56 L Respiratory Rate 19 17 16 Blood Pressure 142/69 H 158/70 H 122/58 L Pulse Oximetry 94 L 96 01/31/18 08:00 01/31/18 12:00 Temperature 95.0 F L 97.2 F L Pulse Rate 65 60 Respiratory Rate 17 19 Blood Pressure 113/61 115/56 L Pulse Oximetry 97 95 Intake & Output 01/30/18 01/31/18 01/31/18 18:59 06:59 18:59 Intake Total 200 / 200 Balance 200 / 200 Weight 52.2 kg Intake: Oral 200 / 200 Other: # Voids 2 Date of Last Bowel Movement 01/26/18 01/26/18 01/26/18 Narrative: GENERAL: Well-nourished, well-developed pleasant female patient in [facility]. SKIN: Warm and dry. No rash. CARDIOVASCULAR: Regular rate and rhythm. No murmur appreciated. RESPIRATORY: No accessory muscle use. Upper rhonchi, clear throughout rest of the lungs. GASTROINTESTINAL: Abdomen soft, non-tender, nondistended. Normoactive bowel sounds x4. MUSCULOSKELETAL: No obvious deformities. Extremities without clubbing, cyanosis , or edema. NEUROLOGICAL: Awake and alert. No obvious cranial nerve deficits. Bilateral lower extremity sensation equal and intact. Clear speech. Results Procedures completed during hospitalization: none - Impressions ITS Impressions Chest X-Ray 01/26/18 17:20 CONCLUSION: 1. There continues to be a focal mass in the medial left upper lung measuring approximately 2.3 cm. This was recently evaluated by CT thorax. 2. Otherwise, the rest the lung babin remain grossly clear. Head CT 01/26/18 17:20 CONCLUSION: 1. Abnormal noncontrast CT brain demonstrating numerous hyperdense masses involving supratentorial brain, cerebellum, and robbie. There is evidence of edema in the right supratentorial white matter, but no significant mass effect or herniation seen. An outpatient CT scan yesterday had demonstrated a cavitary right upper lobe mass and adenopathy in the axilla and supraclavicular region. Primary differential consideration is metastatic disease. . Head MRI 01/27/18 00:00 CONCLUSION: 1. Extensive metastatic disease involving supratentorial brain, cerebellum, and robbie. No evidence of midline shift or herniation. Abdomen/Pelvis CT 01/28/18 00:00 CONCLUSION: 1. No abnormality is identified to explain the clinical symptoms. No findings are present to indicate metastatic disease. 2. Stable intra and extrahepatic bile duct dilatation this patient post cholecystectomy. The chronicity of this finding suggests a benign process. 3. Nonacute findings include severe atherosclerotic disease and bilateral nonobstructing renal stones measuring up to 8 mm in the right kidney. CT Consultation 01/30/18 00:00 CONCLUSION: 1. The right supraclavicular lymphadenopathy is not accessible percutaneously. Discharge Plan - Discharge Disposition Patient Disposition: 03 Discharge to SNF - Discharge Condition Condition: Fair - Discharge Order Discharge Orders: Discharge Order (Routine); Ordered 01/31/18 Ordered By: Shauna East - Discharge Details Anticipated Discharge Date: 01/31/18 - Physicians Team Primary Care Provider: Briseida Altamirano Attending Provider: Dell Dove Other Providers: Ghanshyam Mantilla MD ; Zia Bautista MD ; Yehuda Poon ; [facility]
== END 2018-01-31 17:06 ==
LOC: NEPC 16:27 → NEDA 19:25 → INTOOBSV 19:25 → NEPFCDU 21:48 → N06 01-28 12:42
PROVIDERS: ADMIT Hospitalist; ATTEND Hospitalist